=== PATIENT | female | born 1955 | race Caucasian/White ===

== ENCOUNTER 2021-11-10 17:30 | Emergency (ER) | payer MEDICARE, BC, SELFPAY ==
[2021-11-10 17:46] VITALS: BP 140/70; PULSE 79; RESP 18; TEMP 36.9; O2SAT 98; BMI 23.1
== END 2021-11-10 18:00 | disposition left against medical advice (07) ==
PROVIDERS: Emergency Provider Emergency Medicine; PCP Internal Medicine
DX: R10.9 Unspecified abdominal pain (principal)
CPT/HCPCS: 99281

== ENCOUNTER 2022-12-07 16:21 | Emergency (ER) | payer MEDICARE, BC, SELFPAY ==
[2022-12-07 16:30] VITALS: BP 127/60; PULSE 77; RESP 18; TEMP 36.9; O2SAT 99; BMI 21.9
--- NOTE | 2022-12-07 17:19 | ED_ITS ---
HPI - Back Pain/Injury <KAYLI Olivia - Last Filed: 12/07/22 17:42> General Chief Complaint: Back Pain/Injury Stated Complaint: thinks pinched nerve, difficulty walking Time Seen by Provider: 12/07/22 16:25 Source: patient History of Present Illness HPI Narrative: This is a 66 year old female presents emergency department after a low back strain proximally 2 weeks ago she has been nursing this along when she had a long drive to [place] and back today and was getting out of her small car when she tweaked her back again. She is had low back pain primarily on the right side since this happened is having difficulty walking and pain. Denies weakness, numbness or tingling, radiation of this pain down her leg or any other symptoms. She denies history of substance abuse, denies fever chills or any other symptoms other than this low back pain which has been ongoing over last couple of weeks and then today is now much worse after she got out of her car. She denies any lower extremity weakness, denies any wounds, denies urinary retention or incontinence, denies any stool changes. Recently she has moved to [place] and does not have a primary care provider here. Related Data Previous Rx's Medication Instructions Recorded ibuprofen 600 mg tablet 600 mg PO Q6H PRN fever or pain 12/07/22 #30 tabs lidocaine 5 % topical patch 1 patch topical DAILY #30 ea 12/07/22 (Lidoderm) methocarbamol 500 mg tablet 500 mg PO TID PRN muscle spasm #20 12/07/22 tabs prednisone 20 mg tablet 20 mg PO DAILY 5 days #5 tabs 12/07/22 Allergies Allergy/AdvReac Type Severity Reaction Status Date / Time Sulfa (Sulfonamide Allergy Rash Verified 11/10/21 17:46 Antibiotics) Review of Systems <KAYLI Olivia - Last Filed: 12/07/22 17:42> Review of Systems ROS Unobtainable: All systems reviewed & are unremarkable except as noted in HPI and below Patient History <KAYLI Olivia - Last Filed: 12/07/22 17:42> Social History Smoking Status: Never smoker Smoking Status: Never smoker alcohol intake frequency: holidays/special occasions only Substance Use Type: does not use Exam <KAYLI Olivia - Last Filed: 12/07/22 17:42> Narrative Exam Narrative: Reviewed vitals signs and nursing notes. General: Pleasant, sitting upright, in no acute distress, well groomed, afebrile HEENT: symmetrical facial expressions, moist mucous membranes, neck is supple CV: regular rate and rhythm, warm extremities Respiratory: normal work of breathing, without tachypnea or hypoxia. GI: abdomen soft, nondistended, without CVA tenderness bilaterally. MSK: moves all extremities, no weakness, normal tone, ambulatory without deficit, nontender over her lumbar spinous processes, no weakness, she denies any lower extremity numbness or tingling sensation, her low back pain radiates to her left hip. Skin: brisk capillary refill, without rash or wound Neuro: clear speech and normal cognition, A&O x3, GCS 15, no focal motor or sensation deficits Initial Vital Signs Initial Vital Signs: Vital Signs Temperature 98.5 F 12/07/22 16:30 Pulse Rate 77 12/07/22 16:30 Respiratory Rate 18 12/07/22 16:30 Blood Pressure 127/60 12/07/22 16:30 Pulse Oximetry 99 12/07/22 16:30 Oxygen Delivery Method Room Air 12/07/22 16:30 <Eduar Reynoso DO - Last Filed: 12/07/22 17:57> Initial Vital Signs Initial Vital Signs: Vital Signs Temperature 98.5 F 12/07/22 16:30 Pulse Rate 77 12/07/22 16:30 Respiratory Rate 18 12/07/22 16:30 Blood Pressure 127/60 12/07/22 16:30 Pulse Oximetry 99 12/07/22 16:30 Oxygen Delivery Method Room Air 12/07/22 16:30 Course <KAYLI Olivia - Last Filed: 12/07/22 17:42> Orders Ordered: Discontinued Medications Hydrocodone Bitart/Acetaminophen (Hydrocodone/Acet 5/325 Tablet) 1 tab PO NOW ONE Stop: 12/07/22 17:13 Last Admin: 12/07/22 17:29 Dose: 1 tab Documented By: AT Diazepam (Diazepam 5 Mg Tablet) 10 mg PO NOW ONE Stop: 12/07/22 17:13 Last Admin: 12/07/22 17:30 Dose: 10 mg Documented By: AT Lidocaine (Lidocaine Patch 1 Each Adh..Patch) 1 each TOP NOW ONE Stop: 12/07/22 17:13 Last Admin: 12/07/22 17:29 Dose: 1 each Documented By: AT Prednisone (Prednisone 20 Mg Tablet) 40 mg PO NOW ONE Stop: 12/07/22 17:13 Last Admin: 12/07/22 17:29 Dose: 40 mg Documented By: AT Vital Signs Vital signs: Vital Signs - 8 hr 12/07/22 16:30 Temperature 98.5 F Pulse Rate 77 Respiratory Rate 18 Blood Pressure 127/60 Pulse Oximetry 99 Oxygen Delivery Method Room Air <Eduar Reynoso DO - Last Filed: 12/07/22 17:57> Orders Ordered: Discontinued Medications Hydrocodone Bitart/Acetaminophen (Hydrocodone/Acet 5/325 Tablet) 1 tab PO NOW ONE Stop: 12/07/22 17:13 Last Admin: 12/07/22 17:29 Dose: 1 tab Documented By: AT Diazepam (Diazepam 5 Mg Tablet) 10 mg PO NOW ONE Stop: 12/07/22 17:13 Last Admin: 12/07/22 17:30 Dose: 10 mg Documented By: AT Lidocaine (Lidocaine Patch 1 Each Adh..Patch) 1 each TOP NOW ONE Stop: 12/07/22 17:13 Last Admin: 12/07/22 17:29 Dose: 1 each Documented By: AT Prednisone (Prednisone 20 Mg Tablet) 40 mg PO NOW ONE Stop: 12/07/22 17:13 Last Admin: 12/07/22 17:29 Dose: 40 mg Documented By: AT Vital Signs Vital signs: Vital Signs - 8 hr 12/07/22 16:30 Temperature 98.5 F Pulse Rate 77 Respiratory Rate 18 Blood Pressure 127/60 Pulse Oximetry 99 Oxygen Delivery Method Room Air MDM - Back Pain/Injury <KAYLI Olivia - Last Filed: 12/07/22 17:42> Lab Data Labs: Urine Dip Bedside Urine Glucose Negative Bedside Urine Bilirubin - Negative Bedside Urine Ketone - Negative Urine Specific [place] 1.010 Bedside Urine Occult Blood - Negative Bedside Urine pH 8.0 Bedside Urine Protein - Negative Bedside Urine Urobilinogen - Negative Bedside Urine Nitrite - Negative Bedside Urine Leukocytes - Negative Esterase MDM Narrative Medical decision making narrative: Chief Complaint: Flare of low back pain Primary historian: Patient, Multiple etiologies for patient's complaint considered including, but not limited to: disc injury/herniation, radiculopathy, muscular strain, epidural abscess, malignancy, spondyloarthropathy, acute fracture, urinary tract infection, osteoarthritis, degenerative disc disease, cauda equina, osteomyelitis, spinal stenosis, ligamental injury. I have independently reviewed the patient's vital signs and nursing notes as well as prior records if available. Suspect likely musculoskeletal etiology and acute exacerbation of chronic low back pain. Patient's straight leg raise test was positive. No back pain red flags on history or physical. No history of IV substance use, or bony tenderness to palpation, no trauma, no bony tenderness to palpation, and are afebrile. No bowel or urinary incontinence or retention, no saddle anesthesia, no new/worsening distal weakness, decreased reflexes or foot drop. Pt is nontoxic appearing. Patient has soft tissue tenderness to palpation. Pt is neurovascularly intact distally, without decreased reflexes or strength, and without immunosuppression or evidence of infection, peritoneal signs, hyperte nsive crisis, incontinence, or meningeal signs. Patient's symptoms improved over duration of stay with above-stated therapies. Course of care: For her pain, she took ibuprofen prior to arrival, she was given diazepam, hydrocodone, lidocaine patch and prednisone Social considerations that may affect disposition: none Questions are addressed and there is agreement with the plan and for follow-up. I consulted with the ED attending physician Dr. Reynoso as needed for higher level of care considerations and they were available for discussion and recommendations regarding plan of care and diagnostic testing. Patient is appropriate for outpatient management. <Eduar Reynoso, DO - Last Filed: 12/07/22 17:57> Lab Data Labs: Urine Dip Bedside Urine Glucose Negative Bedside Urine Bilirubin - Negative Bedside Urine Ketone - Negative Urine Specific [place] 1.010 Bedside Urine Occult Blood - Negative Bedside Urine pH 8.0 Bedside Urine Protein - Negative Bedside Urine Urobilinogen - Negative Bedside Urine Nitrite - Negative Bedside Urine Leukocytes - Negative Esterase Discharge Plan Departure Patient Disposition: Home Clinical Impression: Strain of lumbar region Qualifiers: Encounter type: initial encounter Qualified Code(s): S39.012A - Strain of muscle, fascia and tendon of lower back, initial encounter Low back pain Qualifiers: Chronicity: acute Back pain laterality: midline Sciatica presence: without sciatica Qualified Code(s): M54.50 - Low back pain, unspecified Instructions: DI for Back Strain or Sprain Activity Restrictions/Additional Instructions: *You have been diagnosed with a flare of your low back pain, this was likely going to happen no matter trigger was but today, it was getting out of your car. I have given you steroids to help calm down the inflammation at the nerve root. Please use muscle relaxers as needed for spasm, take ibuprofen every 6 hours with food and water and use lidocaine patches every 12 hours for additional pain control. Okay to use Tylenol with these medications for additional pain control. I hope you start feeling better soon, please follow-up with the number below to establish care with 1 of the primary care providers, it will be a long wait but if you have a pending appointment, they can see you for other things in the meantime. Please follow-up with primary care for referral to physical therapy after you are getting better to help prevent this from happening in the future. You can ask your previous primary care provider for referral to physical therapy, I recommend [facility] here in [place]. If your pain is intolerable, please come back for evaluation, we want you to be living a life of quality and to be as pain-free as possible. *What to do: *Please continue to take your regular medications as directed. [x ] New medication prescriptions sent to your pharmacy: [[facility] ] [ ] New medication written as a paper prescription [ ] No new medications given *Please call and schedule follow up with your primary care provider in 2-3 days, at least for an update. Let them know you were seen in the Emergency Department for the above problem. We will electronically transmit a record of today's note if your PCP or specialist is in our system. *If you do not have a primary care provider please contact [phone] to [email or web address] with one of the [facility] primary care providers. *Return to the Emergency Department for worsening symptoms, inability to keep liquids down, fever greater than 101F, chills, or other concerning symptom. Prescriptions: New methocarbamol 500 mg tablet 500 mg PO TID PRN (Reason: muscle spasm) Qty: 20 0RF prednisone 20 mg tablet 20 mg PO DAILY 5 Days Qty: 5 0RF lidocaine [Lidoderm] 5 % adhesive patch,medicated 1 patch topical DAILY Qty: 30 0RF Rx Instructions: leave on most painful area for up to 12 hrs ibuprofen 600 mg tablet 600 mg PO Q6H PRN (Reason: fever or pain) Qty: 30 0RF Referrals: [facility] [place] [Provider Group] Gene WEBB MD [Primary Care Provider] - Stand Alone Forms: Patient Portal/API <Eduar Reynoso DO - Last Filed: 12/07/22 17:57> Cosign ED Attending Cosignature Attestation: Dr Reynoso Co-Sign Statement: I was available for consultation during this patient's emergency department visit. This chart is signed by myself for administrative purposes only. I did not have direct contact with this patient during this visit. They were seen independently by the [facility].
[2022-12-07] MEDS: LIDOCAINE PATCH 1 EACH ADH..PATCH TOP (17:29)
[2022-12-07] MEDS: predniSONE 20 MG TABLET 40 MG PO (17:29)
[2022-12-07] MEDS: HYDROCODONE/ACET 5/325 TABLET 1 TAB PO (17:29)
[2022-12-07] MEDS: diazePAM 5 MG TABLET 10 MG PO (17:30)
== END 2022-12-07 17:43 | disposition home or self-care (01) ==
PROVIDERS: Emergency Provider Nurse Practitioner Critical Care Medicine; PCP Internal Medicine
DX: S39.012A Strain of muscle, fascia and tendon of lower back, initial encounter (principal); X50.1XXA Overexertion from prolonged static or awkward postures, initial encounter
CPT/HCPCS: 81003; 99283

== ENCOUNTER 2023-01-02 09:36 | Emergency (ER) | payer MEDICARE, BC, SELFPAY ==
[2023-01-02] VITALS (10 sets, daily range): BP systolic 136–192; BP diastolic 63–86; PULSE 52–68; RESP 16–26; TEMP 37.1; O2SAT 96–100; BMI 22.4
[2023-01-02] MEDS: MECLIZINE HCL 12.5 MG TABLET 25 MG PO (10:46)
--- NOTE | 2023-01-02 11:47 | PC.NURSE ---
Patient states improvement in dizziness after meclizine. Patient has mild 3/10 frontal headache pressure feels almost sinus like
--- NOTE | 2023-01-02 11:59 | DI.CT.S_ITS ---
PROCEDURE: CT HEAD/BRAIN WO CON INDICATIONS: headache, dizziness TECHNIQUE: Noncontrast 4.5 mm thick angled axial sections acquired from the foramen magnum to the vertex, with coronal and sagittal reformats. For radiation dose reduction, the following was used: automated exposure control, adjustment of mA and/or kV according to patient size. COMPARISON: None. FINDINGS: Image quality: Excellent. CSF spaces: Basal cisterns are patent. No extra-axial fluid collections. The ventricles are symmetric in size and shape. Brain: No intracranial bleeds or masses. There is cerebral volume loss for age, with resultant ventricular and sulcal prominence. There are periventricular and deep white matter chronic small vessel ischemic changes. There is intracranial internal carotid artery atherosclerosis. Skull and face: Calvarium and visualized facial bones appear intact, without suspicious lesions. Sinuses: Visualized sinuses and mastoids are clear. IMPRESSION: Unremarkable intracranial study for age, without a cause of the patient's presenting history identified. Dictated by: Kamari Broderick M.D. on 01/02/2023 at 12:06 Approved by: Kamari Broderick M.D. on 01/02/2023 at 12:07
[2023-01-02] MEDS: ACETAMINOPHEN 325 MG TABLET 975 MG PO (12:33)
[2023-01-02] MEDS: SODIUM CHLORIDE 0.9% 1,000 ML 1000 ML IV (12:34)
[2023-01-02] MEDS: METOCLOPRAMIDE 10 MG/2 ML INJ IV (12:34)
--- NOTE | 2023-01-02 13:27 | ED.DIZZY ---
HPI - Dizziness <Brandi Bhatti PA-C - Last Filed: 01/02/23 16:21> General Chief Complaint: Dizziness Stated Complaint: ref [facility] dizziness/ light headed T-5 Time Seen by Provider: 01/02/23 11:10 Source: patient Mode of arrival: Ambulatory History of Present Illness HPI Narrative: 67-year-old female with past medical history BPPV, hypercholesterolemia presents to the ED with a few days of intermittent vertigo. Patient states that last night, her vertigo worsened, worse with movement of her head. Patient also stated that she had a headache last night for which she took a Tylenol, headache improved to a dull 3/10 pain this morning. Patient denies fever, chills, chest pain, shortness of breath, syncope. Patient states that she is had past attacks of BPPV due to crystals breaking off in her inner ear. Patient describes her current headache as feeling like a dull sinus pain, it is unclear if this is different from her usual headaches. Related Data Home Medications Medication Instructions Recorded Confirmed atorvastatin 10 mg tablet 10 mg PO DAILY 01/02/23 01/02/23 sodium,potassium,mag sulfates 17.5 ml PO 01/02/23 01/02/23 gram-3.13 gram-1.6 gram oral soln valacyclovir 1 gram tablet 4,000 mg PO ONCE 01/02/23 01/02/23 Previous Rx's Medication Instructions Recorded meclizine 25 mg tablet 25 mg PO QID PRN dizziness 5 days 01/02/23 #20 tabs ondansetron 4 mg disintegrating 4 mg PO Q8H PRN nausea and 01/02/23 tablet vomiting #30 tabs Allergies Allergy/AdvReac Type Severity Reaction Status Date / Time Sulfa (Sulfonamide Allergy Rash Verified 01/02/23 09:04 Antibiotics) Review of Systems <Brandi Bhatti PA-C - Last Filed: 01/02/23 16:21> Review of Systems ROS Unobtainable: All systems reviewed & are unremarkable except as noted in HPI and below Constitutional Constitutional: Denies chills, Denies fatigue, Denies fever(s), Denies frequent falls, Reports headache(s), Denies lethargy and Denies weakness Eyes Eyes: Denies change in vision, Denies eye discharge, Denies irritation and Denies loss of vision ENT Ears, Nose, Mouth, and Throat: Denies change in voice, Reports dizziness, Reports headache(s), Denies neck pain, Denies sore throat and Denies throat swelling Cardiovascular Cardiovascular: Denies chest pain, Denies irregular heart rhythm, Denies lightheadedness, Denies palpitations, Denies dyspnea, Denies dyspnea on exertion and Denies orthopnea Respiratory Respiratory: Denies cough, Denies dyspnea, Denies dyspnea on exertion and Denies wheezing Gastrointestinal Gastrointestinal: Denies abdominal pain, Denies change in bowel habits, Denies diarrhea, Reports nausea and Denies vomiting Genitourinary Genitourinary: Denies hematuria, Denies flank pain, Denies urinary incontinence and Denies urinary urgency Musculoskeletal Musculoskeletal: Denies back pain, Denies muscle weakness, Denies neck pain, Denies numbness and Denies tingling Integumentary/Breasts Skin/Breast: Denies pruritus, Denies erythema, Denies rash and Denies wounds Neurologic Neurologic: Denies behavioral changes, Denies confusion, Reports dizziness, Denies frequent falls, Reports headache(s), Denies loss of vision, Denies numbness, Denies tingling and Denies weakness Psychiatric Psychiatric: Denies anxiety, Denies behavioral changes, Denies confusion, Denies depression, Denies homicidal ideation and Denies suicidal ideation Endocrine Endocrine: Denies fatigue, Denies flushing and Denies palpitations Hematologic/Lymphatic Hematologic/Lymphatic: Denies easy bruising Allergic/Immunologic Allergic/Immunologic: Denies urticaria, Denies throat swelling and Denies wheezing Patient History <Brandi Bhatti PA-C - Last Filed: 01/02/23 16:21> Social History Smoking Status: Never smoker Smoking Status: Never smoker alcohol intake frequency: holidays/special occasions only Substance Use Type: does not use Exam <Brandi Bhatti PA-C - Last Filed: 01/02/23 16:21> Narrative Exam Narrative: Const General:?cooperative, healthy appearing and comfortable [facility] Head:?normal to inspection Ears:?hearing grossly normal bilaterally Nose:?external nose normal Face and sinus:?normal facial exam and sinuses nontender Mouth:?oral mucosae normal Throat:?posterior oropharynx normal Eyes General:?appearance normal, both eyes and all related structures Neck Neck:?normal visual inspection and no lymphadenopathy noted Resp Effort & Inspection:?normal respiratory effort Auscultation:?clear to auscultation bilaterally Cardio Rate:?regular rate Rhythm:?regular rhythm Neuro General:?patient alert, patient awake and patient oriented x3; PERRLA; negative [id number]; CN 1 through 12 intact bilaterally; gait is normal Initial Vital Signs Initial Vital Signs: Vital Signs Temperature 98.7 F 01/02/23 09:45 Pulse Rate 68 01/02/23 09:45 Respiratory Rate 18 01/02/23 09:45 Blood Pressure 192/86 H 01/02/23 09:45 Pulse Oximetry 99 01/02/23 09:45 Oxygen Delivery Method Room Air 01/02/23 09:45 <Ella Marie DO - Last Filed: 01/05/23 00:30> Initial Vital Signs Initial Vital Signs: Vital Signs Temperature 98.7 F 01/02/23 09:45 Pulse Rate 68 01/02/23 09:45 Respiratory Rate 18 01/02/23 09:45 Blood Pressure 192/86 H 01/02/23 09:45 Pulse Oximetry 99 01/02/23 09:45 Oxygen Delivery Method Room Air 01/02/23 09:45 Course <Brandi Bhatti PA-C - Last Filed: 01/02/23 16:21> Orders Ordered: Discontinued Medications Acetaminophen (Acetaminophen 325 Mg Tablet) 975 mg PO NOW ONE Stop: 01/02/23 12:01 Last Admin: 01/02/23 12:33 Dose: 975 mg Documented By: BRENDA Sodium Chloride (Normal Saline 0.9%) 1,000 mls @ 1,000 mls/hr IV BOLUS ONE Stop: 01/02/23 12:59 Last Infusion: 01/02/23 13:25 Dose: 0 mls/hr Documented By: Admin: 01/02/23 12:34 Dose: 1,000 mls/hr Documented By: BRENDA Meclizine HCl (Meclizine Hcl 12.5 Mg Tablet) 25 mg PO NOW ONE Stop: 01/02/23 10:27 Last Admin: 01/02/23 10:46 Dose: 25 mg Documented By: VALERIE Metoclopramide HCl (Metoclopramide 10 Mg/2 Ml Inj) 10 mg IV NOW ONE Stop: 01/02/23 12:01 Last Admin: 01/02/23 12:34 Dose: 10 mg Documented By: BRENDA Vital Signs Vital signs: Vital Signs - 8 hr 01/02/23 09:45 01/02/23 10:00 01/02/23 10:15 Temperature 98.7 F Pulse Rate 68 59 L 58 L Respiratory Rate 18 17 20 Blood Pressure 192/86 H 165/74 H 152/69 H Pulse Oximetry 99 98 98 Oxygen Delivery Method Room Air Room Air Room Air 01/02/23 10:30 01/02/23 10:30 01/02/23 10:45 Temperature Pulse Rate 56 L 56 L Respiratory Rate 16 17 Blood Pressure 136/65 Pulse Oximetry 98 97 Oxygen Delivery Method Room Air 01/02/23 10:45 01/02/23 11:44 01/02/23 11:45 Temperature Pulse Rate 57 L 57 L Respiratory Rate Blood Pressure 145/68 H Pulse Oximetry 96 98 Oxygen Delivery Method 01/02/23 11:45 01/02/23 12:37 01/02/23 13:00 Temperature Pulse Rate 61 52 L Respiratory Rate 26 H Blood Pressure 152/70 H Pulse Oximetry 100 99 Oxygen Delivery Method 01/02/23 13:33 Temperature Pulse Rate Respiratory Rate Blood Pressure 137/63 Pulse Oximetry Oxygen Delivery Method <Ella Marie, - Last Filed: 01/05/23 00:30> Orders Ordered: Discontinued Medications Acetaminophen (Acetaminophen 325 Mg Tablet) 975 mg PO NOW ONE Stop: 01/02/23 12:01 Last Admin: 01/02/23 12:33 Dose: 975 mg Documented By: BRENDA Sodium Chloride (Normal Saline 0.9%) 1,000 mls @ 1,000 mls/hr IV BOLUS ONE Stop: 01/02/23 12:59 Last Infusion: 01/02/23 13:25 Dose: 0 mls/hr Documented By: Admin: 01/02/23 12:34 Dose: 1,000 mls/hr Documented By: BRENDA Meclizine HCl (Meclizine Hcl 12.5 Mg Tablet) 25 mg PO NOW ONE Stop: 01/02/23 10:27 Last Admin: 01/02/23 10:46 Dose: 25 mg Documented By: VALERIE Metoclopramide HCl (Metoclopramide 10 Mg/2 Ml Inj) 10 mg IV NOW ONE Stop: 01/02/23 12:01 Last Admin: 01/02/23 12:34 Dose: 10 mg Documented By: [facility] Vital Signs Vital signs: Vital Signs - 8 hr 01/02/23 09:45 01/02/23 10:00 01/02/23 10:15 Temperature 98.7 F Pulse Rate 68 59 L 58 L Respiratory Rate 18 17 20 Blood Pressure 192/86 H 165/74 H 152/69 H Pulse Oximetry 99 98 98 Oxygen Delivery Method Room Air Room Air Room Air 01/02/23 10:30 01/02/23 10:30 01/02/23 10:45 Temperature Pulse Rate 56 L 56 L Respiratory Rate 16 17 Blood Pressure 136/65 Pulse Oximetry 98 97 Oxygen Delivery Method Room Air 01/02/23 10:45 01/02/23 11:44 01/02/23 11:45 Temperature Pulse Rate 57 L 57 L Respiratory Rate Blood Pressure 145/68 H Pulse Oximetry 96 98 Oxygen Delivery Method 01/02/23 11:45 01/02/23 12:37 01/02/23 13:00 Temperature Pulse Rate 61 52 L Respiratory Rate 26 H Blood Pressure 152/70 H Pulse Oximetry 100 99 Oxygen Delivery Method 01/02/23 13:33 Temperature Pulse Rate Respiratory Rate Blood Pressure 137/63 Pulse Oximetry Oxygen Delivery Method MDM - Dizziness <Brandi Bhatti PA-C - Last Filed: 01/02/23 16:21> Lab Data Labs: Urine Dip Bedside Urine Glucose Negative Bedside Urine Bilirubin - Negative Bedside Urine Ketone - Negative Urine Specific [place] 1.005 Bedside Urine Occult Blood - Negative Bedside Urine pH 8.0 Bedside Urine Protein - Negative Bedside Urine Urobilinogen - Negative Bedside Urine Nitrite - Negative Bedside Urine Leukocytes - Negative Esterase MDM Narrative Medical decision making narrative: 67-year-old female with past medical history BPPV, hypercholesterolemia presents to the ED with a few days of intermittent vertigo. Patient is neuro intact on exam. Patient's history and exam is reassuring, most consistent with a primary headache and BPPV. Obtained CT head which was without acute findings. Patient's symptoms responded well to Tylenol, Reglan, IV fluids, meclizine. Recommend follow-up with PCP as soon as possible. Recommend continued use of meclizine, good hydration. Recommend follow-up with physical therapy. ED return precautions were discussed with patient. Patient verbalized understanding. Medical records reviewed: Yes <Ella Marie DO - Last Filed: 01/05/23 00:30> Lab Data Labs: Urine Dip Bedside Urine Glucose Negative Bedside Urine Bilirubin - Negative Bedside Urine Ketone - Negative Urine Specific [place] 1.005 Bedside Urine Occult Blood - Negative Bedside Urine pH 8.0 Bedside Urine Protein - Negative Bedside Urine Urobilinogen - Negative Bedside Urine Nitrite - Negative Bedside Urine Leukocytes - Negative Esterase ECG Data Interpretation: PARAM: Sinus rhythm rate 59 NJ interval 154 QRS [address] changes no T-wave inversions no priors to compare Discharge Plan Departure Patient Disposition: Home Clinical Impression: Benign paroxysmal positional vertigo, Headache Instructions: DI for Vertigo, DI for Headache Activity Restrictions/Additional Instructions: You were evaluated in the ED today for a headache and vertigo. Your symptoms improved with the medications. Your CT head was normal. Your dizziness is likely due to benign positional vertigo, for which you may continue to take meclizine. Please follow-up with your PCP as soon as possible. The walk-in clinic has sent over meclizine and Zofran over to your pharmacy, they have also placed a referral to ENT. Please return to the ED if you have worsening symptoms, persistent vomiting. Prescriptions: No Action atorvastatin 10 mg tablet 10 mg PO DAILY sodium,potassium,mag sulfates 17.5-3.13-1.6 gram recon soln PO valacyclovir 1 gram tablet 4,000 mg PO ONCE meclizine 25 mg tablet 25 mg PO QID PRN (Reason: dizziness) 5 Days Qty: 20 1RF ondansetron 4 mg tablet,disintegrating 4 mg PO Q8H PRN (Reason: nausea and vomiting) Qty: 30 0RF Referrals: Gene WEBB MD [Primary Care Provider] - Stand Alone Forms: Patient Portal/API <Ella Marie DO - Last Filed: 01/05/23 00:30> Cosign ED Attending Perfectoature Attestation: I was immediately available in the department for consultation. Documentation has been reviewed.
== END 2023-01-02 13:34 | disposition home or self-care (01) ==
PROVIDERS: Emergency Provider Student in an Organized Health Care Education/Training Program; PCP Internal Medicine
DX: H81.10 Benign paroxysmal vertigo, unspecified ear (principal); R51.9 Headache, unspecified; R03.0 Elevated blood-pressure reading, without diagnosis of hypertension
CPT/HCPCS: 36415; 70450; 81003; 93005; 96374; 99284; J2765

== ENCOUNTER 2023-03-01 12:45 | Outpatient (RCR) | payer MEDICARE, BC, SELFPAY ==
--- NOTE | 2023-02-08 17:35 | PT.OIE ---
Current Diagnoses Benign paroxysmal vertigo, unspecified ear (02/08/23) Tinnitus, unspecified ear (02/08/23) Nausea (02/08/23) Dizziness and giddiness (02/08/23) Visit Care Team Role Provider Type Svetlana Ely PA-C Referring Provider Physician Wet Process Head Miller Specialty: Emergency Medicine Address: [address] [place] [address], [id number] Email: Gene WEBB MD Attending Provider Non-Staff Family Provider Primary Care Provider Specialty: Internal Medicine Address: [address] [place] [address], [phone] Email: Physical Therapy Initial Evaluation PT-OP-A Visit Information Start: 02/08/23 15:21 Freq: Status: Active Protocol: Document 02/08/23 14:00 DCW (Rec: 02/08/23 15:29 DCW [id number]) Out-Patient Physical Therapy Visit Information Visit Information Visit Type Initial Evaluation Visit Start Time 14:00 Visit Stop Time 14:50 Total Visit Minutes 50 Visit Number 1 Number of CAPSULE MACHINE OPERATOR Visits 0 Evaluation Information Evaluation Date 02/08/23 PT-OP-B Current Condition Start: 02/08/23 15:21 Freq: Status: Active Protocol: Document 02/08/23 14:00 DCW (Rec: 02/08/23 15:29 DCW [id number]) Current Condition History of Current Condition Onset Date Six week history Current Complaints Position-dependent vertigo History of Current Condition Pt is a 67 year old female complaining of a six week history of motion-induced vertigo and imbalance. Pt reports episodes of vertigo last 30-45 seconds, as well as a lingering, low-level sensation of imbalance. Symptoms are provoked by quick head movements. Pt denies recent hearing changes, tinnitus, diplopia, dysarthria , discoordination, or decreased mentation/ consciousness. Pt reports symptoms are waxing/waning in nature. Pt denies hx of HTN, hyperlipidemia, diabetes, arrhythmia, head trauma, seizure, migraines, back/neck problems, CVA, anxiety/panic disorders, depression, or excessive smoking or drinking. Was seen in the ED 01/02/23 due to dizziness, underwent brain CT due to concerns of CVA, however was unremarkable. 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 Successfully treated with an Cintia maneuver. has attempted Cintia over the past six weeks with no success. PT-OP-C Subjective Start: 02/08/23 15:21 Freq: Status: Active Protocol: Document 02/08/23 14:00 DCW (Rec: 02/08/23 15:29 DCW [id number]) OP-PT Subjective Patient Comments Patient Comments I saw an ENT last week, I was doing pretty well at that point. Both he and the ER doc think it's BPPV. The past two days were really good, but this morning I bent down really quick, and I've just been really off balance ever since. Patient Reported Progress Worse Patient Questionnaires Dizziness Handicap Inventory DHI Score 68% DHI Functional Impairment 60 to 79% Impaired (Score 60- 79) PT-OP-O Vestibular Start: 02/08/23 15:21 Freq: Status: Active Protocol: Document 02/08/23 14:00 DCW (Rec: 02/08/23 15:29 DCW [id number]) Vestibular Assessment Screening Tests Vestibular Artery Screen Negative Auditory Tests Wiseman Test Within normal limits Rinne Test Negative Air Conduction Results Equal Visual Testing Smooth Pursuits Horizontal WNL Smooth Pursuits Vertical WNL Saccades Horizontal WNL Saccades Vertical WNL Heave Test Positive Bilateral Thrust Head Positive Bilateral Spontaneous Nystagmus Negative Positional Testing Greg-Hallpike Negative Left,Negative Right Rolling Test Negative Left,Negative Right PT-OP-Q Treatments Start: 02/08/23 15:21 Freq: Status: Active Protocol: Document 02/08/23 14:00 DCW (Rec: 02/08/23 15:29 DCW [id number]) Canalithic Repositioning BPPV Treatment Gufoni Affected Canal(s) Right Gufoni Reps x1 PT-OP-T Assessment and Plan Start: 02/08/23 15:21 Freq: Status: Active Protocol: Document 02/08/23 14:00 DCW (Rec: 02/08/23 17:35 DCW [id number]) Physical Therapy Assessment Rehab Potential Rehabilitation Potential Good Evaluation Complexity Number of Personal Factors/Comorbidities 1-2 Number of Body Systems Impaired 1-2 Clinical Presentation at Evaluation Unstable Impairments Impairments Balance,Functional Activities, Functional Mobility,Vestibular Goals Two Impairment Pt scores a 68% dysfunction on the Dizziness Handicap Inventory Halfway Goal (LTG) Pt to decreased DHI score by at least 28 points to 40% LTG Duration 03/11/23 One Impairment Pt experiencing position- dependent vertigo Amusement Park Ride Mechanic Goal (LTG) Pt to report no symptoms of position-dependent vertigo for one full week LTG Duration 03/11/23 Assessment Summary Assessment Pt presents today with a largely negative vestibular examination. Pt's subjective history and reports of symptoms, however, are largely suggestive of likely BPPV. Additionally, pt has received a head CT scan within the last 5-6 weeks, which was unremarkable, suggesting no central explanation of pt's symptoms. Pt has had rotational vertigo with positional changes, although has not been experiencing those for the past few weeks, in addition to the ongoing symptom of vague, near- constant, low-level imbalance, which is a relatively common secondary symptom of BPPV. Pt admits she and her have attempted a home Cintia with no result. Due to the potential of a self-Cintia resulting in a posterior-to- horizontal canal conversion, as well as the horizontal canal historically being the canal which results in more likely low-level instability, a right-sided Gufoni maneuver was performed, despite no noted nystagmus, due to pt's history of prior BPPV. Pt was educated on BPPV, expectations for treatment, possible recurrence (BPPV has a ~50% recurrence rate in the five years following treatment), and post-Cintia restrictions. Pt to return in ~1 week for a follow-up appointment, and intermittently afterward as indicated for treatment of potential BPPV. Physical Therapy Plan Frequency and Duration Frequency of Treatment 1-2x/week Plan of Care Start Date 02/08/23 Plan of Care End Date 03/11/23 Therapeutic Interventions Therapeutic Interventions Balance Training,Canalithic Repositioning,Home Exercise Program,Manual Therapy, Therapeutic Activities, Therapeutic Exercises, Vestibular Rehabilitation Next Visit Focus/Plan Next Note Type Treatment Note Next Visit Plan Positional testing, CRM as indicated
--- NOTE | 2023-02-08 17:36 | PT.OPPOC ---
Physical, Occupational & Speech Therapy At [facility] Current Diagnoses Benign paroxysmal vertigo, unspecified ear (02/08/23) Tinnitus, unspecified ear (02/08/23) Nausea (02/08/23) Dizziness and giddiness (02/08/23) Visit Care Team Role Provider Type Svetlana Ely PA-C Referring Provider Physician Highway Patrol Officer Specialty: Emergency Medicine Address: [address] [place] [address], [id number] Email: Gene WEBB MD Attending Provider Non-Staff Family Provider Primary Care Provider Specialty: Internal Medicine Address: [address] [place] [address], [id number] Email: Plan Of Care PT-OP-T Assessment and Plan Start: 02/08/23 15:21 Freq: Status: Active Protocol: Document 02/08/23 14:00 DCW (Rec: 02/08/23 17:35 DCW [id number]) Physical Therapy Assessment Rehab Potential Rehabilitation Potential Good Evaluation Complexity Number of Personal Factors/Comorbidities 1-2 Number of Body Systems Impaired 1-2 Clinical Presentation at Evaluation Unstable Impairments Impairments Balance,Functional Activities, Functional Mobility,Vestibular Goals Two Impairment Pt scores a 68% dysfunction on the Dizziness Handicap Inventory Administrative Assistant Coordinator Goal (LTG) Pt to decreased DHI score by at least 28 points to 40% LTG Duration 03/11/23 One Impairment Pt experiencing position- dependent vertigo Shelter Goal (LTG) Pt to report no symptoms of position-dependent vertigo for one full week LTG Duration 03/11/23 Assessment Summary Assessment Pt presents today with a largely negative vestibular examination. Pt's subjective history and reports of symptoms, however, are largely suggestive of likely BPPV. Additionally, pt has received a head CT scan within the last 5-6 weeks, which was unremarkable, suggesting no central explanation of pt's symptoms. Pt has had rotational vertigo with positional changes, although has not been experiencing those for the past few weeks, in addition to the ongoing symptom of vague, near- constant, low-level imbalance, which is a relatively common secondary symptom of BPPV. Pt admits she and her have attempted a home Cintia with no result. Due to the potential of a self-Cintia resulting in a posterior-to- horizontal canal conversion, as well as the horizontal canal historically being the canal which results in more likely low-level instability, a right-sided Gufoni maneuver was performed, despite no noted nystagmus, due to pt's history of prior BPPV. Pt was educated on BPPV, expectations for treatment, possible recurrence (BPPV has a ~50% recurrence rate in the five years following treatment), and post-Cintia restrictions. Pt to return in ~1 week for a follow-up appointment, and intermittently afterward as indicated for treatment of potential BPPV. Physical Therapy Plan Frequency and Duration Frequency of Treatment 1-2x/week Plan of Care Start Date 02/08/23 Plan of Care End Date 03/11/23 Therapeutic Interventions Therapeutic Interventions Balance Training,Canalithic Repositioning,Home Exercise Program,Manual Therapy, Therapeutic Activities, Therapeutic Exercises, Vestibular Rehabilitation Next Visit Focus/Plan Next Note Type Treatment Note Next Visit Plan Positional testing, CRM as indicated Plan of Care Dates Plan of Care Start Date 02/08/23 Plan of Care End Date 03/11/23 Electronically Signed by: Kem Dasilva, PT 02/08/23 9691 If you are in agreement with this Plan of Care, please return a signed and dated copy. I have reviewed this Plan of Care and certify that the skilled therapy services above are required to meet the patient?s needs. Physician Signature Date Printed Name and Credentials Clinical Instructor Signature Printed Name and Credentials
--- NOTE | 2023-02-15 13:17 | PT.OTN ---
Current Diagnoses Benign paroxysmal vertigo, unspecified ear (02/15/23) Tinnitus, unspecified ear (02/15/23) Nausea (02/15/23) Dizziness and giddiness (02/15/23) Physical Therapy Treatment Note PT-OP-A Visit Information Start: 02/08/23 15:21 Freq: Status: Active Protocol: Document 02/15/23 12:45 DCW (Rec: 02/15/23 13:17 DCW [id number]) Out-Patient Physical Therapy Visit Information Visit Information Visit Type Treatment Note Visit Start Time 12:45 Visit Stop Time 13:15 Total Visit Minutes 30 Visit Number 2 Number of USED CAR [employer] Visits 0 Evaluation Information Evaluation Date 02/08/23 PT-OP-B Current Condition Start: 02/08/23 15:21 Freq: Status: Active Protocol: Document 02/08/23 14:00 DCW (Rec: 02/08/23 15:29 DCW [id number]) Current Condition History of Current Condition Onset Date Six week history Current Complaints Position-dependent vertigo History of Current Condition Pt is a 67 year old female complaining of a six week history of motion-induced vertigo and imbalance. Pt reports episodes of vertigo last 30-45 seconds, as well as a lingering, low-level sensation of imbalance. Symptoms are provoked by quick head movements. Pt denies recent hearing changes, tinnitus, diplopia, dysarthria , discoordination, or decreased mentation/ consciousness. Pt reports symptoms are waxing/waning in nature. Pt denies hx of HTN, hyperlipidemia, diabetes, arrhythmia, head trauma, seizure, migraines, back/neck problems, CVA, anxiety/panic disorders, depression, or excessive smoking or drinking. Was seen in the ED 01/02/23 due to dizziness, underwent brain CT due to concerns of CVA, however was unremarkable. 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 Successfully treated with an Cintia maneuver. has attempted Cintia over the past six weeks with no success. PT-OP-C Subjective Start: 02/08/23 15:21 Freq: Status: Active Protocol: Document 02/15/23 12:45 DCW (Rec: 02/15/23 13:16 DCW [id number]) OP-PT Subjective Patient Comments Patient Comments Still getting dizzy with tilting her head back, but overall is feeling like her symptoms have improved. Has not been spinning, it is more just the general instability. Has been trying to avoid rapid movements. PT-OP-O Vestibular Start: 02/08/23 15:21 Freq: Status: Active Protocol: Document 02/15/23 12:45 DCW (Rec: 02/15/23 13:16 DCW [id number]) Vestibular Assessment Positional Testing [place]-Hallpike Positive Right,Upbeating,< 60 Seconds PT-OP-Q Treatments Start: 02/08/23 15:21 Freq: Status: Active Protocol: Document 02/15/23 12:45 DCW (Rec: 02/15/23 13:16 DCW [id number]) Canalithic Repositioning BPPV Treatment Cintia Affected Canal(s) Right Posterior Reps x2 Comments Modified Cintia PT-OP-T Assessment and Plan Start: 02/08/23 15:21 Freq: Status: Active Protocol: Document 02/15/23 12:45 DCW (Rec: 02/15/23 13:16 DCW [id number]) Physical Therapy Assessment Impairments Impairments Balance,Functional Activities, Functional Mobility,Vestibular Goals Two Impairment Pt scores a 68% dysfunction on the Dizziness Handicap Inventory Jail Goal (LTG) Pt to decreased DHI score by at least 28 points to 40% LTG Duration 03/11/23 One Impairment Pt experiencing position- dependent vertigo Jail Goal (LTG) Pt to report no symptoms of position-dependent vertigo for one full week LTG Duration 03/11/23 Assessment Summary Assessment During right [place]-Hallpike test , pt complained of vertigo and demonstrated up-beating, torsional nystagmus lasting approximately 15 seconds, consistent with diagnosis of right-sided posterior canal BPPV, canalithiasis-type. Pt was treated with a right-sided modified Cintia maneuver. Pt complained of symptoms in the first and third position, which is normally indicative of a successful treatment. Further positional testing was negative. Pt should return for follow-up testing within the next 1-2 weeks to ensure successful management of BPPV. Physical Therapy Plan Frequency and Duration Frequency of Treatment 1-2x/week Plan of Care Start Date 02/08/23 Plan of Care End Date 03/11/23 Therapeutic Interventions Therapeutic Interventions Balance Training,Canalithic Repositioning,Home Exercise Program,Manual Therapy, Therapeutic Activities, Therapeutic Exercises, Vestibular Rehabilitation Next Visit Focus/Plan Next Note Type Treatment Note Next Visit Plan Positional testing, CRM as indicated
--- NOTE | 2023-03-01 12:59 | PT.OTN ---
Current Diagnoses Benign paroxysmal vertigo, unspecified ear (03/01/23) Tinnitus, unspecified ear (03/01/23) Nausea (03/01/23) Dizziness and giddiness (03/01/23) Physical Therapy Treatment Note PT-OP-A Visit Information Start: 02/08/23 15:21 Freq: Status: Active Protocol: Document 03/01/23 12:45 DCW (Rec: 03/01/23 12:59 DCW [id number]) Out-Patient Physical Therapy Visit Information Visit Information Visit Type Discharge Summary Visit Start Time 12:45 Visit Stop Time 12:55 Total Visit Minutes 10 Visit Number 3 Number of SHANK SORTER Visits 0 Evaluation Information Evaluation Date 02/08/23 PT-OP-B Current Condition Start: 02/08/23 15:21 Freq: Status: Active Protocol: Document 02/08/23 14:00 DCW (Rec: 02/08/23 15:29 DCW [id number]) Current Condition History of Current Condition Onset Date Six week history Current Complaints Position-dependent vertigo History of Current Condition Pt is a 67 year old female complaining of a six week history of motion-induced vertigo and imbalance. Pt reports episodes of vertigo last 30-45 seconds, as well as a lingering, low-level sensation of imbalance. Symptoms are provoked by quick head movements. Pt denies recent hearing changes, tinnitus, diplopia, dysarthria , discoordination, or decreased mentation/ consciousness. Pt reports symptoms are waxing/waning in nature. Pt denies hx of HTN, hyperlipidemia, diabetes, arrhythmia, head trauma, seizure, migraines, back/neck problems, CVA, anxiety/panic disorders, depression, or excessive smoking or drinking. Was seen in the ED 01/02/23 due to dizziness, underwent brain CT due to concerns of CVA, however was unremarkable. 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 Successfully treated with an Cintia maneuver. has attempted Cintia over the past six weeks with no success. PT-OP-C Subjective Start: 02/08/23 15:21 Freq: Status: Active Protocol: Document 03/01/23 12:45 DCW (Rec: 03/01/23 12:59 DCW [id number]) OP-PT Subjective Patient Comments Patient Comments Pt reports no symptoms since last visit, has not been sleeping with any elevation, sleeping in all positions with no issues. PT-OP-O Vestibular Start: 02/08/23 15:21 Freq: Status: Active Protocol: Document 03/01/23 12:45 DCW (Rec: 03/01/23 12:59 DCW [id number]) Vestibular Assessment Positional Testing [place]-Hallpike Negative Left,Negative Right Rolling Test Negative Left,Negative Right PT-OP-Q Treatments Start: 02/08/23 15:21 Freq: Status: Active Protocol: Document 03/01/23 12:45 DCW (Rec: 03/01/23 12:59 DCW [id number]) Manual Therapy Treatment Other Other Manual Treatments Positional testing PT-OP-T Assessment and Plan Start: 02/08/23 15:21 Freq: Status: Active Protocol: Document 03/01/23 12:45 DCW (Rec: 03/01/23 12:59 DCW [id number]) Physical Therapy Assessment Impairments Impairments Balance,Functional Activities, Functional Mobility,Vestibular Goals Two Impairment Pt scores a 68% dysfunction on the Dizziness Handicap Inventory Detention Goal (LTG) Pt to decreased DHI score by at least 28 points to 40% LTG Duration 03/11/23 One Impairment Pt experiencing position- dependent vertigo Detention Goal (LTG) Pt to report no symptoms of position-dependent vertigo for one full week LTG Duration Met Progress Towards Goals Progress Towards Goals Goals Met Assessment Summary Assessment Pt reports no further symptoms . Positional testing entirely negative today. No longer appears to be experiencing active BPPV. Pt will be discharged from skilled therapy at this time, understands recurrence rate for BPPV, will require a nre referral if symptoms recur. Physical Therapy Plan Frequency and Duration Frequency of Treatment 1-2x/week Plan of Care Start Date 02/08/23 Plan of Care End Date 03/11/23 Therapeutic Interventions Therapeutic Interventions Balance Training,Canalithic Repositioning,Home Exercise Program,Manual Therapy, Therapeutic Activities, Therapeutic Exercises, Vestibular Rehabilitation Discharge Physical Therapy Discharge Reasons Goals Met Next Visit Focus/Plan Next Note Type Discharge Summary
== END 2023-03-02 11:33 ==
LOC: PHYS 12:45
PROVIDERS: Absent Provider Internal Medicine; Family Provider Internal Medicine; PCP Internal Medicine; Referring Provider Student in an Organized Health Care Education/Training Program; Visit Provider Internal Medicine
DX: R11.0 Nausea (principal); H93.19 Tinnitus, unspecified ear; H81.10 Benign paroxysmal vertigo, unspecified ear
CPT/HCPCS: 95992; 97140; 97161

== ENCOUNTER → 2023-03-30 07:26 | Outpatient (CLI) | payer MEDICARE, BC, SELFPAY ==
[2023-03-30 08:23] LABS: Add Manual Diff / Slide Review NO; Basophils Absolute Auto 100 /uL (0-100); Basophils Percent Auto 1.1 % (0-2); Eosinophils Absolute Auto 100 /uL (0-450); Hemoglobin 14.9 g/dL (12.0-16.0); Lymphocytes Absolute Auto 1700 /uL (1100-4500); Lymphocytes Percent Auto 35.8 % (25-40); Mean Corpuscular HGB Conc 33.7 % (30-36); Mean Corpuscular Volume 91.8 fL (80-100); Monocytes Absolute Auto 300 /uL (0-900); Monocytes Percent Auto 6.6 % (3-14); Neutrophils Absolute Auto 2500 /uL (1500-7000); Neutrophils Percent Auto 53.5 % (50-75); Platelet Count 253 X10^3/uL (150-400); White Blood Cell Count 4.7 X10^3/uL (4.5-11.0)
[2023-03-30 09:13] LABS: Alanine Aminotransferase 29 IU/L (<35); Albumin 4.4 g/dL (3.5-5.0); Albumin Globulin Ratio 1.8 (1.0-2.8); Alkaline Phosphatase 68 U/L (38-126); Aspartate Aminotransferase 29 IU/L (14-36); BUN Creatinine Ratio 17.7 (6-22); Bilirubin Total 0.7 mg/dL (0.2-1.3); Blood Urea Nitrogen 11 mg/dL (7-17); Calcium 9.8 mg/dL (8.4-10.2); Carbon Dioxide 31 mmol/L (22-32); Chloride 101 mmol/L (98-107); Cholesterol 177 mg/dL (140-199); Estimated Glomerular Filt Rate > 60 mL/min (>60); Globulin 2.4 g/dL (1.7-4.1); Glucose 84 mg/dL (80-110); HDL Cholesterol 84 mg/dL (40-60); HEMOLYSIS < 15 (0-50); LDL Cholesterol Calculated 75 mg/dL (<100); Sodium 139 mmol/L (137-145); Total Protein 6.8 g/dL (6.3-8.2); Triglycerides 89 mg/dL (35-150)
== END ==
PROVIDERS: Family Provider Internal Medicine; PCP Family Medicine; Referring Provider Family Medicine; Visit Provider Family Medicine
DX: R42 Dizziness and giddiness (principal); E78.2 Mixed hyperlipidemia; K57.92 Diverticulitis of intestine, part unspecified, without perforation or abscess without bleeding
CPT/HCPCS: 36415; 80053; 80061; 85025

== ENCOUNTER → 2023-07-11 10:12 | Outpatient (CLI) | payer MEDICARE, BC, SELFPAY ==
--- NOTE | 2023-07-11 10:13 | DI.RAD.S_ITS ---
Bone Density Report Name: EULOGIO MONTIEL Age: 67 Sex: Female Ethnicity: White Date of : 1955 Indication: postmenopausal; screening for osteoporosis; Referring Provider: ANNIE MATAMOROS Study: Bone densitometry was performed. Exam Date: July 11, 2023 Accession number: [id number] Bone Density: Region BMD T-score Z-score Classification AP Spine(L1-L4) 0.822 -2.0 0.0 Osteopenia Femoral Neck (Left) 0.562 -2.6 -0.8 Osteoporosis Total Hip (Left) 0.625 -2.6 -1.1 Osteoporosis Femoral Neck (Right) 0.578 -2.4 -0.7 Osteopenia Total Hip (Right) 0.648 -2.4 -0.9 Osteopenia Total Hip Mean 0.637 -2.5 -1.0 Osteoporosis World Health Organization criteria for BMD impression classify patients as: Normal (T-score at or above -1.0), Osteopenia (T-score between -1.0 and -2.5), or Osteoporosis (T-score at or below -2.5). 10-year Fracture Risk: FRAX not reported because: Some T-score for Spine Total or Hip Total or Femoral Neck at or below -2.5 Impression: The patient has osteoporosis, based on the Left Total Hip T-score. Discussion: INCREASED RISK OF FRACTURE. BONE DENSITY IS UNDESIRABLY LOW AT ONE OR MORE SKELETAL SITES, CONSISTENT WITH POSTMENOPAUSAL OSTEOPOROSIS. This patient's lowest T-score meets the World Health Organization's (WHO) criteria for osteoporosis at one or more sites (T-score -2.5 or below). In untreated patients, the risk of osteoporotic fracture increases approximately two-fold for each 1.0 SD decrease in T-score. Low bone density is not the only risk factor for fracture; also consider factors such as patient's age, frailty or poor health, risk of falling, risk of injury, previous osteoporotic fracture, family history of osteoporosis, cigarette smoking, low body weight, etc. Not everyone with low bone mineral density has osteoporosis; osteomalacia and other metabolic bone disorders should also be considered. Patients who have osteoporosis should be evaluated for specific diseases and conditions (secondary causes) that may cause or contribute to bone loss. The [place] [employer]ocrinologists (AACE) and National Osteoporosis Foundation (NOF) recommend pharmacologic intervention for all postmenopausal women whose T-score is in this range. The patient should follow a healthful lifestyle (good nutrition with adequate calcium and vitamin D, and appropriate weight-bearing exercise). Follow-Up: Consider a repeat BMD and Vertebral Fracture Assessment (VFA) exam in 2 years or sooner if medically necessary, to reassess this patient's status. Reported by: [facility] SANA BEARD M.D. on 07/11/2023 10:39:00 AM.
== END ==
LOC: RAD 10:12
PROVIDERS: Family Provider Internal Medicine; PCP Family Medicine; Referring Provider Family Medicine; Visit Provider Family Medicine
DX: M81.0 Age-related osteoporosis without current pathological fracture (principal)
CPT/HCPCS: 77080

== ENCOUNTER → 2024-04-03 09:30 | Outpatient (CLI) | payer MEDICARE, BC, SELFPAY ==
[2024-04-03 11:39] LABS: Alanine Aminotransferase 26 IU/L (<35); Albumin 4.2 g/dL (3.5-5.0); Albumin Globulin Ratio 1.6 (1.0-2.8); Alkaline Phosphatase 70 U/L (38-126); Aspartate Aminotransferase 30 IU/L (14-36); BUN Creatinine Ratio 14.8 (6-22); Bilirubin Total 0.7 mg/dL (0.2-1.3); Blood Urea Nitrogen 9 mg/dL (7-17); Calcium 9.3 mg/dL (8.4-10.2); Carbon Dioxide 30 mmol/L (22-32); Chloride 105 mmol/L (98-107); Cholesterol 170 mg/dL (140-199); Estimated Glomerular Filt Rate > 60 mL/min (>60); Globulin 2.6 g/dL (1.7-4.1); Glucose 90 mg/dL (80-110); HDL Cholesterol 87 mg/dL (40-60); HEMOLYSIS < 15 (0-50); LDL Cholesterol Calculated 70 mg/dL (<100); Potassium 3.8 mmol/L (3.4-5.1); Sodium 136 mmol/L (137-145); Total Protein 6.8 g/dL (6.3-8.2); Triglycerides 66 mg/dL (35-150)
[2024-04-03 16:18] LABS: Hep C Virus Ab w/Reflex Quant NEGATIVE s/c (NEGATIVE)
== END ==
PROVIDERS: Family Provider Internal Medicine; PCP Family Medicine; Referring Provider Family Medicine; Visit Provider Family Medicine
DX: Z00.00 Encounter for general adult medical examination without abnormal findings (principal); E78.2 Mixed hyperlipidemia; R92.30 Dense breasts, unspecified; Z80.3 Family history of malignant neoplasm of breast; R42 Dizziness and giddiness
CPT/HCPCS: 36415; 80053; 80061; 86803

== ENCOUNTER 2024-09-27 23:20 | Emergency (ER) | payer MEDICARE, BC, SELFPAY ==
[2024-09-27 23:29] VITALS: BP 174/78; PULSE 92; RESP 16; TEMP 37.8; O2SAT 97; BMI 23.1
[2024-09-28] VITALS (10 sets, daily range): BP systolic 117–151; BP diastolic 56–67; PULSE 65–83; O2SAT 95–97
--- NOTE | 2024-09-28 02:31 | DI.CT.S_ITS ---
PROCEDURE: CT ABDOMEN PELVIS W CON INDICATIONS: abdominal pain, fever TECHNIQUE: After the administration of intravenous contrast, axial sections acquired from the lung bases to the pubic symphysis. Coronal and sagittal reformats were performed. For radiation dose reduction, the following was used: automated exposure control, adjustment of mA and/or kV according to patient size. COMPARISON: None. FINDINGS: Image quality: Diagnostic. Lower Chest: Consolidation within the right middle lobe ABDOMEN: Liver: No solid passed. A few hepatic cysts. Gallbladder: The gallbladder surgically absent. Biliary ducts: Mild central biliary dilation, a normal finding status post cholecystectomy. Pancreas: No ductal dilation. Spleen: Size is within normal limits. Adrenal Glands: No adrenal nodules. Kidneys and Ureters: No hydronephrosis. No solid mass. No complex renal cystic lesion which requires follow up. Stomach and Bowel: No bowel obstruction. Numerous diverticula. Inflammatory changes with slight thickening and edema within the sigmoid colon. No abscess. No free air. The appendix is normal. Peritoneum: No abnormal intraperitoneal fluid. No free air. Ventral Wall: Small fat containing umbilical hernia. Abdominal Nodes: No retroperitoneal or mesenteric adenopathy by size criteria. Vessels: Aorta and inferior vena cava are normal in size. PELVIS: Pelvic Organs: Calcified fibroid disease. Prominent vascularity. Bladder: No bladder wall thickening, accounting for underdistention. Pelvic Nodes: No enlarged lymph nodes. Miscellaneous: No inguinal hernias are seen. Bones: No aggressive osseous abnormality. Degenerative changes 3 seen throughout the lumbar spine most prominently at L3-L4. IMPRESSION: Right middle lobe consolidation concerning for pneumonia. Acute simple diverticulosis within the sigmoid colon. Fibroid disease. Interpretation is concordant with overnight read. Dictated by: Zackary Nagel M.D. on 09/28/2024 at 8:15 Approved by: Zackary Nagel M.D. on 09/28/2024 at 8:20
[2024-09-28 02:37] LABS: Add Manual Diff / Slide Review NO; Basophils Absolute Auto 0 /uL (0-100); Basophils Percent Auto 0.2 % (0-2); Eosinophils Absolute Auto 0 /uL (0-450); Hematocrit 41.6 % (36-46); Hemoglobin 14.5 g/dL (12.0-16.0); Lymphocytes Absolute Auto 1000 /uL (1100-4500); Lymphocytes Percent Auto 8.9 % (25-40); Mean Corpuscular HGB Conc 34.8 % (30-36); Mean Corpuscular Hemoglobin 31.3 PG (26-34); Monocytes Absolute Auto 800 /uL (0-900); Monocytes Percent Auto 7.2 % (3-14); Neutrophils Absolute Auto 9100 /uL (1500-7000); Neutrophils Percent Auto 83.7 % (50-75); Platelet Count 192 X10^3/uL (150-400); Red Blood Cell Count 4.62 X10^6/uL (4.0-5.2); Red Cell Distribution Width 13.6 % (11.6-14.8); White Blood Cell Count 10.8 X10^3/uL (4.5-11.0)
[2024-09-28 02:41] LABS: Appearance Urine UA CLEAR; Bilirubin Urine UA NEGATIVE (NEGATIVE); Color Urine UA YELLOW; Glucose Urine UA NEGATIVE (Negative); Ketones Urine UA 1+ (NEGATIVE); Leukocyte Esterase Urine UA NEGATIVE (NEGATIVE); Nitrite Urine UA NEGATIVE (Negative); Occult Blood Urine UA TRACE-LYSED (Negative); Protein Urine UA NEGATIVE (Negative); Specific Gravity Urine UA <=1.005 (1.000-1.035); Urobilinogen Urine UA 0.2 E.U./dL (0.2)
[2024-09-28 02:42] LABS: Alanine Aminotransferase 78 IU/L (<35); Albumin 4.4 g/dL (3.5-5.0); Albumin Globulin Ratio 1.6 (1.0-2.8); Alkaline Phosphatase 109 U/L (38-126); Aspartate Aminotransferase 78 IU/L (14-36); BUN Creatinine Ratio 16.7 (6-22); Bilirubin Total 0.9 mg/dL (0.2-1.3); Blood Urea Nitrogen 10 mg/dL (7-17); Calcium 9.4 mg/dL (8.4-10.2); Carbon Dioxide 26 mmol/L (22-32); Chloride 104 mmol/L (98-107); Estimated Glomerular Filt Rate > 60 mL/min (>60); Globulin 2.8 g/dL (1.7-4.1); Glucose 120 mg/dL (80-110); HEMOLYSIS < 15 (0-50); Lipase 50 U/L (23-300); Potassium 3.6 mmol/L (3.4-5.1); Sodium 138 mmol/L (137-145); Total Protein 7.2 g/dL (6.3-8.2)
[2024-09-28 02:43] LABS: Lactate (Lactic Acid) 0.8 mmol/L (0.7-2.1)
[2024-09-28 02:54] LABS: RBC Urine None Seen (0-5/HPF); Urine Volume 10mL (spun); WBC Urine None Seen (0-5/HPF)
[2024-09-28 02:55] LABS: Bacteria Urine None Seen; Culture Indicated Urine Cult Not Indicated; Squamous Epithelial Cell Urine None Seen (0-5/HPF)
[2024-09-28] MEDS: ACETAMINOPHEN 325 MG TABLET 975 MG PO (03:03)
[2024-09-28] MEDS: SODIUM CHLORIDE 0.9% 1,000 ML 1000 ML IV (03:10)
--- NOTE | 2024-09-28 03:23 | ED.GENADULT ---
HPI - General Adult General Chief complaint: Abdominal Pain Stated complaint: abd px x 3days Time Seen by Provider: 09/28/24 01:59 Source: patient Mode of arrival: Ambulatory History of Present Illness HPI narrative: 68-year-old woman with a history of hyperlipidemia who presents with 3-4 days of right upper abdominal pain and tenderness now with fever. No diarrhea, shortness at the for the last 3 nights he has been having chills, decreased appetite. Had a normal bowel movement this morning which did not influence her pain. No chest pain, cough, palpitations or dyspnea Related Data Home Medications Medication Instructions Recorded Confirmed calcium citrate 500 mg (2,376 mg) 500 mg PO BID 04/03/24 09/27/24 effervescent tablet multivitamin (Daily Multi-Vitamin 1 tab PO DAILY 04/03/24 09/27/24 tablet) Previous Rx's Medication Instructions Recorded atorvastatin 10 mg tablet 10 mg PO DAILY cholesterol #90 tabs 06/13/24 amoxicillin 875 mg-potassium 1 tab PO BID #20 tabs 09/28/24 clavulanate 125 mg tablet Allergies Allergy/AdvReac Type Severity Reaction Status Date / Time Sulfa (Sulfonamide Allergy Rash Verified 04/03/24 08:36 Antibiotics) Review of Systems Review of Systems Narrative: Pertinent positive and negative findings as per HPI Patient History Medical History (Updated 09/28/24 @ 05:59 by Brenda Cazares MD) Family history of breast cancer Dense breast Encounter for subsequent annual wellness visit (AWV) in Medicare patient Vertigo Mixed hyperlipidemia Diverticulitis Social History Smoking Status: Never smoker Smoking Status: Never smoker alcohol intake frequency: holidays/special occasions only Exam Initial Vital Signs Initial Vital Signs: Vital Signs Temperature 100.0 F H 09/27/24 23:29 Pulse Rate 92 H 09/27/24 23:29 Respiratory Rate 16 09/27/24 23:29 Blood Pressure 174/78 H 09/27/24 23:29 Pulse Oximetry 97 09/27/24 23:29 Oxygen Delivery Method Room Air 09/27/24 23:29 General: Healthy appearing, in no acute distress. Able to give a complete and coherent history. Well-nourished well-developed HEENT: Moist mucous membranes, normal sclera with reactive pupils, Neck: No JVD, supple Respiratory: Lungs are clear to auscultation, no wheezing no rales no rhonchi. Full and symmetrical air movement Cardiac: Regular rate and rhythm no murmurs no bruits Abdomen: Soft, right upper quadrant tenderness radiating into the right lower quadrant without rebound or guarding. No flank pain Skin: Warm and dry, no rashes Neurologic: Grossly neurologically intact with no obvious asymmetries or abnormalities Extremities: No trauma, well perfused Psych: Cooperative, appropriate insight and affect Course Orders Ordered: ED Orders 09/28/24 02:15 Complete Blood Count AUTO DIFF Stat Comprehensive Metabolic Panel Stat Lactate (Lactic Acid) Stat Lipase Stat 09/28/24 02:31 CT abdomen pelvis w con Stat 09/28/24 02:36 Urinalysis and Microscopic Stat Amoxicillin/Clavulanate Potassium (Amoxicillin/Clav 875/125 Mg) 1 tab PO NOW ONE Stop: 09/28/24 05:55 Discontinued Medications Acetaminophen (Acetaminophen 325 Mg Tablet) 975 mg PO NOW ONE Stop: 09/28/24 02:32 Last Admin: 09/28/24 03:03 Dose: 975 mg Documented By: Sodium Chloride (Normal Saline 0.9%) 1,000 mls @ 1,000 mls/hr IV BOLUS ONE Stop: 09/28/24 03:30 Last Infusion: 09/28/24 04:14 Dose: Infused Documented By: Admin: 09/28/24 03:10 Dose: 1,000 mls/hr Documented By: Vital Signs Vital signs: Vital Signs - 8 hr 09/27/24 23:29 Temperature 100.0 F H Pulse Rate 92 H Respiratory Rate 16 Blood Pressure 174/78 H Pulse Oximetry 97 Oxygen Delivery Method Room Air Medical Decision Making Lab Data 09/28/24 02:15 09/28/24 02:15 Labs: Lab Results 09/27/24 09/28/24 Range/Units 23:41 02:15 WBC 10.8 (4.5-11.0) X10^3/uL RBC 4.62 (4.0-5.2) X10^6/uL Hgb 14.5 (12.0-16.0) g/dL Hct 41.6 (36-46) % MCV 90.0 (80-100) fL MCH 31.3 (26-34) PG MCHC 34.8 (30-36) % RDW 13.6 (11.6-14.8) % Plt Count 192 (150-400) X10^3/uL Neut % (Auto) 83.7 H (50-75) % Lymph % (Auto) 8.9 L (25-40) % [place] % (Auto) 7.2 (3-14) % Eos % (Auto) 0.0 L (2-4) % Baso % (Auto) 0.2 (0-2) % Neut # (Auto) 9100 H (7701-3547) /uL Lymph # (Auto) 1000 L (1765-4946) /uL [place] # (Auto) 800 (0-900) /uL Eos # (Auto) 0 (0-450) /uL Baso # (Auto) 0 (0-100) /uL Sodium 138 (137-145) mmol/L Potassium 3.6 (3.4-5.1) mmol/L Chloride 104 (98-107) mmol/L Carbon Dioxide 26 (22-32) mmol/L BUN 10 (7-17) mg/dL Creatinine 0.60 (0.52-1.04) mg/dL Estimated GFR > 60 (>60) mL/min BUN/Creatinine Ratio 16.7 (6-22) Glucose 120 H (80-110) mg/dL Lactate 0.8 (0.7-2.1) mmol/L Calcium 9.4 (8.4-10.2) mg/dL Total Bilirubin 0.9 (0.2-1.3) mg/dL AST 78 H (14-36) IU/L ALT 78 H (<35) IU/L Alkaline Phosphatase 109 (38-126) U/L Total Protein 7.2 (6.3-8.2) g/dL Albumin 4.4 (3.5-5.0) g/dL Globulin 2.8 (1.7-4.1) g/dL Albumin/Globulin Ratio 1.6 (1.0-2.8) Lipase 50 (23-300) U/L Urine Color Yellow Urine Appearance Clear Urine pH 7.0 (4.5-8.0) Ur Specific [place] <=1.005 (1.000-1.035) Urine Protein Negative (Negative) Urine Glucose (UA) Negative (Negative) g/dL Urine Ketones 1+ H (NEGATIVE) Urine Occult Blood Trace-lysed (Negative) Urine Nitrate Negative (Negative) Urine Bilirubin Negative (NEGATIVE) Urine Urobilinogen 0.2 (0.2) E.U./dL Ur Leukocyte Esterase Negative (NEGATIVE) Urine RBC None seen (0-5/HPF) Urine WBC None seen (0-5/HPF) Ur Squamous Epith Cells None seen (0-5/HPF) Urine Bacteria None seen (None) Ur Culture Indicated? Cult not indicated Vol Urine Centrifuged 10ml (spun) Urine Dip Bedside Urine Glucose Negative Bedside Urine Bilirubin - Negative Bedside Urine Ketone +/- 5 Urine Specific [place] 1.010 Bedside Urine Occult Blood - Negative Bedside Urine pH 6.5 Bedside Urine Protein - Negative Bedside Urine Urobilinogen - Negative Bedside Urine Nitrite - Negative Bedside Urine Leukocytes - Negative Esterase Point of care testing: Urine Dip Bedside Urine Glucose Negative Bedside Urine Bilirubin - Negative Bedside Urine Ketone +/- 5 Urine Specific [place] 1.010 Bedside Urine Occult Blood - Negative Bedside Urine pH 6.5 Bedside Urine Protein - Negative Bedside Urine Urobilinogen - Negative Bedside Urine Nitrite - Negative Bedside Urine Leukocytes - Negative Esterase MDM Narrative Medical decision making narrative: CC: 4 days of right upper quadrant pain with nighttime fevers and chills Complicating co-morbidities: Hyperlipidemia Data collected from: patient Medical records reviewed: Routine wellness exam from primary physician reviewed April 03, 2024 Differential considered: Cholecystitis, pancreatitis, constipation, appendicitis, neoplastic process Exam documented above, pertinent findings include: Patient is quite warm to the touch temperature 1 hour ago was 100. Tender in the right upper quadrant and right mid quadrants without rebound or guarding. Remainder of exam is relatively benign Lab Test results independently reviewed as above. Pertinent findings: CBC is unremarkable Chemistries are reassuring. She has an elevated AST at 78 and ALT at 78. Liver studies were normal on April 03, 2024 Urine does not suggest infection Imaging studies independently reviewed: Diverticulosis with mild fat stranding adjacent to the sigmoid colon consistent with diverticulitis Also reported right middle lobe consolidation. There are no pulmonary complaints at all to correlate clinically Treatments: Oral Augmentin, Tylenol, 1 L of fluid Discussion: 68-year-old woman with increasing abdominal pain. She has had multiple episodes of diverticulitis previously as well as multiple prior colonoscopies showing no significant complications. There was no evidence of sepsis, significant anemia, bowel obstruction, masses or tumors. We will start her on Augmentin b.i.d. for 10 days. Recommended MiraLax to keep her stool soft and follow up with her primary care physician. No indication for further imaging or hospitalization at this time and she is safe for discharge Discharge Plan Departure Patient Disposition: Home Clinical Impression: Diverticulitis Instructions: DI for Diverticulitis Activity Restrictions/Additional Instructions: Thank you for coming in today Your lab work does not show significant abnormalities, overwhelming bacterial infection, new kidney or liver problems. Your CT scan suggests you have a developing diverticulitis. There was also a question of a developing right middle lobe pneumonia. Clinically, I do not suspect a pneumonia however if it is there, the antibiotics for the diverticulitis are going to be appropriate to treat that as well You have been given the 1st dose of Augmentin in the emergency department. Prescription for 10 day course is electronically transmitted to [email or web address] in [place]. I would recommend daily MiraLax to keep your stool very soft to avoid any complications or increased pain. If you find that you are getting worse or develop any new symptoms, please feel free to return to the emergency department for further evaluation. Prescriptions: New amoxicillin-pot clavulanate 875-125 mg tablet 1 tab PO BID Qty: 20 0RF No Action atorvastatin 10 mg tablet 10 mg PO DAILY Qty: 90 3RF calcium citrate 500 mg tablet, effervescent 500 mg PO BID multivitamin [Daily Multi-Vitamin] Tablet 1 tab PO DAILY Referrals: Savannah Bernal DO [Primary Care Provider] - Stand Alone Forms: Patient Portal/API/Survey
[2024-09-28] MEDS: AMOXICILLIN/CLAV 875/125 MG 1 TAB PO (06:10)
== END 2024-09-28 06:12 | disposition home or self-care (01) ==
PROVIDERS: Emergency Provider Emergency Medicine; Family Provider Internal Medicine; PCP Family Medicine
DX: K57.92 Diverticulitis of intestine, part unspecified, without perforation or abscess without bleeding (principal); R50.9 Fever, unspecified
CPT/HCPCS: 36415; 74177; 80053; 81001; 81003; 83605; 83690; 85025; 96360; 99284; Q9967

== ENCOUNTER → 2024-10-31 09:29 | Outpatient (CLI) | payer MEDICARE, BC, SELFPAY ==
[2024-10-31 11:01] LABS: Influenza A - CEPHEID Flu A NEGATIVE (NEGATIVE); Influenza B - CEPHEID Flu B NEGATIVE (NEGATIVE); Respiratory Syncytial Virus Negative (Negative)
[2024-10-31 11:03] LABS: COVID-19 CEPHEID 4-PLEX PCR Negative (Negative)
== END ==
PROVIDERS: Family Provider Internal Medicine; PCP Family Medicine; Visit Provider Chiropractor
DX: R05.1 Acute cough (principal)
CPT/HCPCS: 0241U; 87070

== ENCOUNTER → 2024-10-31 09:37 | Outpatient (CLI) | payer MEDICARE, BC, SELFPAY ==
--- NOTE | 2024-10-31 09:39 | DI.RAD.S_ITS ---
PROCEDURE: XR CHEST 2V INDICATIONS: cough, crackles bilat TECHNIQUE: 2 views of the chest were acquired. COMPARISON: None. FINDINGS: Surgical changes and devices: Cholecystectomy clips. Lungs and pleura: Lungs are clear. No pleural effusions or pneumothorax. Mediastinum: Mediastinal contours are normal. Heart size is normal. Bones and chest wall: No suspicious bony abnormalities. Soft tissues appear unremarkable. IMPRESSION: No acute cardiopulmonary abnormality is seen. Dictated by: Brigette Zhang M.D. on 10/31/2024 at 11:32 Approved by: Brigette Zhang M.D. on 10/31/2024 at 11:33
== END ==
PROVIDERS: Family Provider Internal Medicine; PCP Family Medicine; Referring Provider Chiropractor; Visit Provider Chiropractor
DX: R05.1 Acute cough (principal); Z90.49 Acquired absence of other specified parts of digestive tract
CPT/HCPCS: 0241U; 71046; 87070

== ENCOUNTER → 2025-04-09 09:19 | Outpatient (CLI) | payer MEDICARE, BC, SELFPAY ==
[2025-04-09 10:33] LABS: Alanine Aminotransferase 18 IU/L (<35); Albumin 4.7 g/dL (3.5-5.0); Albumin Globulin Ratio 1.9 (1.0-2.8); Alkaline Phosphatase 70 U/L (38-126); Blood Urea Nitrogen 12 mg/dL (7-17); Calcium 9.8 mg/dL (8.4-10.2); Carbon Dioxide 29 mmol/L (22-32); Chloride 103 mmol/L (98-107); Cholesterol 183 mg/dL (140-199); Estimated Glomerular Filt Rate > 60 mL/min (>60); Globulin 2.5 g/dL (1.7-4.1); Glucose 89 mg/dL (70-99); HDL Cholesterol 98 mg/dL (40-60); HEMOLYSIS < 15 (0-50); Potassium 4.4 mmol/L (3.4-5.1); Sodium 139 mmol/L (137-145); Total Protein 7.2 g/dL (6.3-8.2); Triglycerides 89 mg/dL (35-150)
== END ==
PROVIDERS: PCP Family Medicine; Referring Provider Family Medicine; Visit Provider Family Medicine
DX: Z00.00 Encounter for general adult medical examination without abnormal findings (principal); E78.2 Mixed hyperlipidemia
CPT/HCPCS: 36415; 80053; 80061

== ENCOUNTER → 2025-05-13 07:36 | Outpatient (CLI) | payer MEDICARE, BC, SELFPAY | PROVIDERS: PCP Family Medicine; Visit Provider Chiropractor | DX: J02.9 Acute pharyngitis, unspecified (principal) | CPT/HCPCS: 87070 ==